=== PATIENT | female | born 1950 | race Caucasian/White ===

== ENCOUNTER 2023-07-10 00:07 | Emergency (ER) | payer OTHER ==
[2023-07-10 00:19] VITALS: BP 158/78; PULSE 74; RESP 14; TEMP 98; BMI 18.1
== END 2023-07-10 01:08 | disposition home or self-care (01) ==
LOC: EDBD → FER 00:07
DX: L76.22 Postprocedural hemorrhage of skin and subcutaneous tissue following other procedure (principal)
CPT/HCPCS: 99282-25